=== PATIENT | male | born 1980 | race Caucasian/White ===

== ENCOUNTER 2017-02-07 01:14 | Emergency (ER) | payer BC ==
[2017-02-07] MEDS ORDERED: METHYLPREDNISOLONE SOD SUCC/PF 40 MG/ML VIAL IV ONE (01:42)
[2017-02-07] MEDS ORDERED: METHYLPREDNISOLONE SOD SUCC/PF 125 MG/2 ML VIAL ONE (01:43)
--- NOTE | 2017-02-07 01:46 | ERNOTE ---
Integumentary HPI - General Time Seen by Provider: 02/07/17 01:20 Source: patient Exam Limitations: no limitations - Immun/Allergies/Home Medications Immunizations: IMMUNIZATION HX Immunizations Up to Date Yes History of Influenza Vaccine No Allergies/Adverse Reactions: Allergies Allergy/AdvReac Type Severity Reaction Status Date / Time No Known Allergies Allergy Unverified 02/07/17 01:24 Home Medications: HOME MEDICATIONS Diphenhydramine HCl [Benadryl] 25 mg PO BID #30 capsule 02/07/17 [Last Taken Unknown] Loratadine/Pseudoephedrine [Claritin-D 24 Hour Tablet] 1 each PO DAILY 02/07/17 [Last Taken Unknown] predniSONE [Prednisone] 2 tab PO DAILY 02/07/17 [Last Taken Unknown] - History of Present Illness Narrative: Itchy rash on neck which has been diagnosed with dermatitis however the patient is actively scratching the area on his neck and the area is welted up. Review of Systems - Review of Systems Constitutional: Present: no symptoms reported EYE: Present: no symptoms reported ENT: Present: no symptoms reported Respiratory: Present: no symptoms reported Cardiology: Present: no symptoms reported Gastrointestinal/Abdominal: Present: no symptoms reported Genitourinary: Present: no symptoms reported Musculoskeletal: Present: no symptoms reported Skin: Present: See HPI - Patient's Past Medical History Patient History - Medical: No pertinent hx Patient History - Cardiac/Respiratory: No pertinent hx Patient History - Cancer: No Hx of Cancer Patient History - Surgical Procedures: No surgical history Patient History - Other: None - Social History Living Situations: spouse Abuse History: No History of abuse Psych History: No pertinent hx Smoking Status: Never smoker Alcohol Use: occasionally Drug Use: none - Immunizations Immunizations Up to Date: Yes History of Influenza Vaccine: No Physical Exam - Physical Exam General Appearance: Present: wd/wn, alert, no apparent distress - patient is actively scratching his neck with this examiner walks into the exam room Ears, Nose, Throat: Present: normal ENT inspection - swelling of the face is noted Neck: Present: other - there are welts around the patient's neck back and front of his neck small amount of welts as noted to his right anterior shoulder region and a small one on the back patient is actively scratching the region stating that it itches Respiratory: Present: no respiratory distress, normal breath sounds, no accessory muscle use, chest nontender, lungs clear Cardiovascular/Chest: Present: regular rate, rhythm, no murmur, normal peripheral pulses Extremity Exam: Present: normal inspection Skin Exam: Present: other - and has hives on his neck anterior chest and back I see a picture on patient's phone revealing the swelling and redness and rash on his face a few days ago which has since improved. This patient presented clinic 2 days ago and was given shots of steroids and Claritin. The rash became worse after the patient showered in warm water. ED Progress - Vital Signs Patient's Vital Signs:: I have reviewed the patient's vital signs. Vital Signs: Vital Signs 02/07/17 01:17 Temperature 36.8 C Pulse Rate 82 Respiratory 16 Rate Blood Pressure 142/73 O2 Sat by Pulse 98 Oximetry - Progress/Reassessment Chief Complaint: Rash Plan - Plan Plan: This patient has hives, the etiology of the hives is unknown at this time. However as long as the patient scratches and irritates the rash it will continue getting worse. Today we will give the patient 125 mg of Solu-Medrol IV and I will give him 2 Benadryl to take home take before going to bed. Very strongly discouraged from scratching the rash. We measures were instituted in the ER and I advised him to do cooling measures at home. Departure Clinical Impression: Hives - Departure Disposition: Home self-care Condition: Good Instructions: Pruritus, Allergies, [id number] Additional Instructions: These do not scratch the rash regardless of whether it itches or not. Please take Benadryl 25 mg 2 tablets tonight. Please do cooling measures to the areas that itch. Prescriptions: Diphenhydramine HCl [Benadryl] 25 mg PO BID #30 capsule
[2017-02-07] MEDS ORDERED: diphenhydrAMINE HCL 25 MG CAPSULE PO ONE (01:47)
[2017-02-07] MEDS ORDERED: diphenhydrAMINE HCL 25 MG CAPSULE ONE (01:48)
[2017-02-07 01:59] VITALS: BP 121/73
== END 2017-02-07 01:57 | disposition home or self-care (01) ==
LOC: ER 01:14
DX: L50.0 Allergic urticaria (principal)

== ENCOUNTER 2017-02-08 18:09 | Emergency (ER) | payer BC ==
[2017-02-08 18:27] VITALS: BP 146/97
[2017-02-08] MEDS ORDERED: diphenhydrAMINE HCL 50 MG/ML VIAL IV ONE (18:44)
[2017-02-08] MEDS ORDERED: FAMOTIDINE 10 MG/ML VIAL IV ONE ×2 (18:44→18:54)
[2017-02-08] MEDS ORDERED: HYDROCORTISONE SOD SUCCINATE 50 MG/ML VIAL IV ONE (18:44)
[2017-02-08] MEDS ORDERED: diphenhydrAMINE HCL 50 MG/ML VIAL ONE (18:54)
[2017-02-08] MEDS ORDERED: HYDROCORTISONE SOD SUCCINATE 50 MG/ML VIAL ONE (18:54)
--- NOTE | 2017-02-08 19:06 | ERNOTE ---
Integumentary HPI - General Presenting Symptoms: rash Time Seen by Provider: 02/08/17 18:33 Source: patient, family Exam Limitations: no limitations - Immun/Allergies/Home Medications Immunizations: IMMUNIZATION HX Immunizations Up to Date Yes History of Influenza Vaccine Yes Allergies/Adverse Reactions: Allergies Allergy/AdvReac Type Severity Reaction Status Date / Time No Known Allergies Allergy Verified 02/08/17 18:27 Home Medications: HOME MEDICATIONS Diphenhydramine HCl [Benadryl] 25 mg PO BID #30 capsule 02/07/17 [Last Taken Unknown] Loratadine/Pseudoephedrine [Claritin-D 24 Hour Tablet] 1 each PO DAILY 02/07/17 [Last Taken Unknown] predniSONE [Prednisone] 2 tab PO DAILY 02/07/17 [Last Taken Unknown] Famotidine [Pepcid] 20 mg PO BID #20 tablet 02/08/17 [Last Taken Unknown] Prednisone 20 mg PO DAILY #22 tablet 02/08/17 [Last Taken Unknown] hydrOXYzine PAMOATE [Vistaril] 50 mg PO TID #30 cap 02/08/17 [Last Taken Unknown ] - History of Present Illness Narrative: Patient presents with an exacerbation of his urticarial rash. 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 He understands that it could be a contact dermatitis from laundry detergent, fabric softener and bath soap as well. Location: Reports: generalized Quality: Reports: itching Severity: moderate Exposure: Reports: other - no definitive cause has been determined however several potentials have been identified Modifying Factors - (Improves): Reports: antihistamine, prednisone Associated Symptoms: Reports: hives Prior Treatment: Reports: recently seen Review of Systems - Review of Systems Constitutional: Present: See HPI EYE: Present: no symptoms reported ENT: Present: no symptoms reported Respiratory: Present: no symptoms reported Cardiology: Present: no symptoms reported Gastrointestinal/Abdominal: Present: no symptoms reported Genitourinary: Present: no symptoms reported Musculoskeletal: Present: no symptoms reported Skin: Present: See HPI Neurological: Present: no symptoms reported Endocrine: Present: no symptoms reported Hematologic/Lymphatic: Present: no symptoms reported Psych: Present: no symptoms reported - Patient's Past Medical History Patient History - Medical: No pertinent hx Patient History - Cardiac/Respiratory: No pertinent hx Patient History - Cancer: No Hx of Cancer Patient History - Surgical Procedures: No surgical history Patient History - Other: None - Social History Living Situations: spouse Abuse History: No History of abuse Psych History: No pertinent hx Smoking Status: Never smoker Alcohol Use: occasionally Drug Use: none - Immunizations Immunizations Up to Date: Yes History of Influenza Vaccine: Yes Physical Exam - Physical Exam General Appearance: Present: wd/wn, alert, moderate distress Eye Exam: Normal inspection: bilateral, PERRL: bilateral Ears, Nose, Throat: Present: normal ENT inspection, H, normal pharynx Neck: Present: normal inspection, nontender Respiratory: Present: no respiratory distress, normal breath sounds, no accessory muscle use, chest nontender, lungs clear Cardiovascular/Chest: Present: regular rate, rhythm, no murmur, normal peripheral pulses Gastrointestinal/Abdominal: Present: normal bowel sounds, nontender, nondistended, soft, no organomegaly Rectal Exam: Present: deferred Back Exam: Present: normal inspection, normal range of motion Extremity Exam: Present: normal inspection, non-tender, no edema, normal range of motion Neurological Exam: Present: alert, oriented, normal mood/affect Skin Exam: Present: skin rash, other - she has edema on the face around where he put his sunglasses on and fairly significant scattered urticaria throughout the body on the areas that are covered by clothes Lymphatic Exam: Present: no adenopathy ED Progress - Vital Signs Patient's Vital Signs:: I have reviewed the patient's vital signs. Vital Signs: Vital Signs 02/08/17 18:19 Temperature 36.7 C Pulse Rate 83 Respiratory 18 Rate Blood Pressure 146/97 O2 Sat by Pulse 99 Oximetry - Progress/Reassessment Chief Complaint: Rash Plan - Plan Plan: Both the patient, his and myself had a lengthy discussion regarding possible offending agents. 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 I agree that certainly the chemicals there is applying to his heller could've gotten on his sunglasses and caused the reexposures to the allergen on the face. The facial urticaria follows exactly along where his sunglasses were. However he has extensive urticaria underneath his T-shirt as well as in the groin and on the legs. We identified the possibility that the gloves that he was wearing while he was baling also could've been contaminated and he has thrown those away. We had further discussions regarding the possibility of laundry detergent, fabric softener or even bar soap as being the offending agents. Patient will be given a new dose of Solu Cortef Benadryl and Pepcid here in the ED and we will provide him with a longer taper of prednisone, a prescription for Atarax as well as Pepcid for at home. Patient will see his family physician this week for ongoing care. He agrees to do everything he can to wash any tools to my been using, wash any closer to my been wearing and to do incredible due diligence to assure himself that any of farm chemicals are not going to be a cause of future exposure for him Departure Clinical Impression: Hives - Departure Disposition: Home self-care Condition: Good Instructions: Hives, [id number], Contact Dermatitis, [id number] Prescriptions: Famotidine [Pepcid] 20 mg PO BID #20 tablet Prednisone 20 mg PO DAILY #22 tablet hydrOXYzine PAMOATE [Vistaril] 50 mg PO TID #30 cap
== END 2017-02-08 19:21 | disposition home or self-care (01) ==
LOC: ER 18:09
DX: L50.0 Allergic urticaria (principal)